=== PATIENT | male | born 1975 | race Caucasian/White ===

== ENCOUNTER 2022-09-23 16:17 | Emergency (ER) | payer OTHER, SELFPAY ==
[2022-09-23 16:44] VITALS: BP 166/120; PULSE 87; RESP 20; TEMP 36.9; O2SAT 98; BMI 25.2
--- NOTE | 2022-09-23 16:57 | CRLHL7_ITS ---
For Patients: As a result of the Century Cures Act, medical imaging exams and procedure reports are released immediately into your electronic medical record. You may view this report before your referring provider. If you have questions, please contact your health care provider. Indication: Pain after fall Technique: Three views left shoulder Comparison: None Findings: Bones: Alignment is normal. No fractures or bone lesions. Joint spaces: Unremarkable. Soft tissues: Unremarkable. Impression: Negative. Dictated by Ashley Bedoya MD @ 09/23/2022 5:41:27 PM (Electronically Signed)
--- NOTE | 2022-09-23 17:20 | ED.GENADULT ---
HPI - General Adult General Chief complaint: Shoulder Injury/Pain Stated complaint: Fell on left shoulder Time Seen by Provider: 09/23/22 16:52 Source: patient Mode of arrival: ambulatory History of Present Illness HPI narrative: 46-year-old male with a history of borderline hypertension presents emergency department 6 hours after a fall at home. He was on his way to his mailbox when he slipped on the [employer] driveway, falling behind his car. Did not hit his head, no loss of consciousness. Fell directly onto his left shoulder. He was able to get up without any assistance had some mild tenderness. He laid down for a nap and when he woke up he noticed that the pain was worsened now it is very difficult to move the arm because of pain. He can lift the arm with the opposite arm but cannot lift it on his own free will. He tried taking some Tylenol a few hours ago which did help temporarily. Has not taken any ibuprofen. No prior history of shoulder surgery. No radiculopathy. He is now getting what he describes as some trapezius area tenderness but mild. No prior history of shoulder dislocations. He thinks he may have had a clavicle fracture as a child but no complications. Past medical history states is benign, his blood pressures normally little borderline high but he is never qualified for medication. No prescriptions at this time, no allergies. Socially with no pertinent travel or intoxication. ROS is negative for other generalized, musculoskeletal, neurological, hematological or chest concerns. Related Data Previous Rx's Medication Instructions Recorded oxycodone 5 mg tablet 2.5 - 5 mg PO TID PRN pain #10 tabs 09/23/22 Allergies Allergy/AdvReac Type Severity Reaction Status Date / Time No Known Drug Allergies Allergy Verified 09/23/22 16:47 Exam Const: Vital Signs, click to edit/add: Vital Signs - 24 hr 09/23/22 16:44 Temperature 98.4 F Pulse Rate [Pulse Oximeter] 87 Respiratory Rate 20 Blood Pressure [Ri ght Upper Arm] 166/120 H Pulse Oximetry 98 Oxygen Delivery Me thod Room Air Documenting provider has reviewed patient's vital signs: yes Common normals: no apparent distress General appearance: cooperative and well kempt HENMT: Common normals: normocephalic and head/scalp atraumatic Head and scalp: normocephalic and atraumatic Face and sinus: normal facial exam Eye: Other: Pupils equal with normal visual tracking Neck & C-Spine: Common normals: full ROM Cervical spine: cervical ROM normal; no cervical spine tenderness Other: Mild tenderness of the left paraspinal muscles and trapezius area, as he described Resp: Common normals: normal respiratory effort, no use of accessory muscles and clear to auscultation bilaterally Auscultation: clear to auscultation bilaterally Cardio: Common normals: regular rate, regular rhythm, S1 normal heart sound, S2 normal heart sound, no murmurs and peripheral pulses 2+ throughout Rate: regular rate Rhythm: regular rhythm Heart sounds: S1 normal and S2 normal Peripheral pulses: pulses 2+ throughout Extremity: Other: Right shoulder with normal range of motion, no point bony tenderness normal strength. Left shoulder is shoulder in question. He has markedly reduced range of motion there is already an effusion setting in. Point of maximal tenderness is along the deltoid. There is no obvious deformity but an effusion does certainly obscure this. I can passively abduct adduct internally and externally rotate the shoulder but it is painful for him. Downstream, he has normal range of motion and strength in the wrist elbow and fingers. Normal sensation in the fingers normal hack driver strength. Neuro: Speech: speech normal Motor exam: strength 5/5 throughout, no tremor noted and no movement abnormalities noted Psych: Appearance: well kempt Mood and affect: euthymic mood Insight: insight good Judgement: judgment good Skin: Common normals: no rashes or lesions noted and no wounds General skin exam: no rashes or lesions noted Course Vital Signs Vital signs: Initial Vital Signs Temperature 98.4 F 09/23/22 16:44 Temperature Source Temporal Artery Scan 09/23/22 16:44 Pulse Rate 87 09/23/22 16:44 Respiratory Rate 20 09/23/22 16:44 Blood Pressure 166/120 H 09/23/22 16:44 Blood Pressure Mean 135 09/23/22 16:44 Blood Pressure Position Sitting 09/23/22 16:44 Pulse Oximetry 98 09/23/22 16:44 Oxygen Delivery Method 09/23/22 16:44 Vital Signs Temperature 98.4 F 09/23/22 16:44 Pulse Rate 87 09/23/22 16:44 Respiratory Rate 20 09/23/22 16:44 Blood Pressure 166/120 H 09/23/22 16:44 Pulse Oximetry 98 09/23/22 16:44 Oxygen Delivery Method 09/23/22 16:44 Temperature 98.4 F 09/23/22 16:44 Pulse Rate 87 09/23/22 16:44 Respiratory Rate 20 09/23/22 16:44 Blood Pressure 166/120 H 12 16:44 Pulse Oximetry 98 09/23/22 16:44 Oxygen Delivery Method 09/23/22 16:44 Medical Decision Making MDM Narrative Medical decision making narrative: Differential diagnosis including cervical spine injury, shoulder fracture, dislocation, sprain, rotator cuff injury. Strongly suspicious of a tear based on the fact that he already has an effusion and difficulty moving. X-rays performed, he declines Tylenol or ibuprofen at this time. X-ray reviewed: Per my interpretation, no signs of fracture. I do appreciate somewhat of an effusion as well, concern with labral tear versus rotator cuff tear. Because of this, I have advised patient to my findings and I have asked that he follow up with Orthopedics, referral has been placed. Radiology interpretation reviewed as negative as well. He still declined pain medication, we discussed Tylenol, ibuprofen, use of melatonin Tylenol p.m. at night if the pain is more severe, limited supply of oxycodone will be given for severe pain if needed alarm symptoms reviewed. Discharge Plan Discharge Clinical Impression: Injury of left rotator cuff Patient Disposition: Home, Self-Care Condition: Stable Instructions: Rotator Cuff Injury (ED) Additional Instructions: I am concerned about a tear of the tendons that operate your shoulder. The x-ray does not show fracture. These types of tears are not well seen on x-ray and may require an MRI or a more specialized exam. I would like for you to wear a sling and follow-up with an mechanical service specialist. It is okay to take her arm out of the sling to perform some gentle [id number] exercises, as this will help prevent stiffness. For pain, Tylenol 1000 mg every 6 hours and or ibuprofen 600 mg every 6 hours. I will also give you a limited supply of oxycodone to use for severe pain, mainly at night. This should be used sparingly. They will call you on Monday to schedule with the orthopedic provider. It is okay to use melatonin, Tylenol p.m. or other gentle sleep aids to help with nighttime pain and sleep. Activity Level: Activity as Tolerated Discharge Diet: Regular Prescriptions: New oxycodone 5 mg tablet 2.5 - 5 mg PO TID PRN (Reason: pain) Qty: 10 0RF Follow Up/Referrals: Jori Townsend MD [Staff Physician] - 2 Days (1st available Orthopedics, suspect internal shoulder derangement) Wesley Pennington MD [Primary Care Provider] - Stand Alone Forms: [employer] Info Instructions
[2022-09-23 18:05] VITALS: BP 166/120; PULSE 87; RESP 20; TEMP 36.9
== END 2022-09-23 17:53 | disposition home or self-care (01) ==
PROVIDERS: Emergency Provider Family Medicine; PCP Family Medicine
DX: S46.002A Unspecified injury of muscle(s) and tendon(s) of the rotator cuff of left shoulder, initial encounter (principal); W00.9XXA Unspecified fall due to ice and snow, initial encounter
CPT/HCPCS: 73030; 99283; 99284

== ENCOUNTER 2022-10-12 07:05 | Outpatient (CLI) | payer OTHER, SELFPAY ==
--- NOTE | 2022-10-12 07:15 | MR_ITS ---
[address] [address] Phone:?[phone] Fax:?[phone] Referring Physician Information: Cat Banda [address] [facility] [address] Phone:?[phone] Fax:?[phone] Patient:Jeovany Contreras D.O.B:?1975 Sex:?Male Phone:?[phone] [facility] MRN:?[id number] Exam Date:?10/12/2022 ? EXAM: MRI of the LEFT SHOULDER, without contrast CLINICAL INFORMATION: Male, 46 years old, with left shoulder pain. INDICATION: Evaluate for rotator cuff tear. PRIOR SURGERY: None reported. PLAIN FILMS: None available. COMPARISONS: No prior MRIs available. TECHNICAL INFORMATION: Using a 1.5T MR scanner and a localizing surface coil: coronal obliques: PD, T2, STIR sagittal obliques: PD, T2 axials: PD, T2 SEDATION: None CONTRAST: None FINDINGS: Bones: Proximal humerus: No fracture or marrow edema/pathology. No humeral Hill-Sachs or reverse Hill-Sachs lesion/impaction or contusion. Glenoid: No fracture or marrow edema/pathology. No osseous Bankart lesion. Rotator cuff and muscles/tendons: Supraspinatus: Full thickness, essentially full-width tear of supraspinatus, tendon retraction to the mid humeral head. A slender portion of the posterior tendon fibers may remain partially intact. No muscle atrophy. Infraspinatus: No tendinopathy, tear or atrophy. Teres minor: No tendinopathy, tear or atrophy. Subscapularis: Mild tendinopathy of the superior distal subscapularis, without tendon tear or muscle atrophy. Deltoid: No strain or atrophy. Coracoacromial arch: Acromion morphology: The acromion has type II morphology. No discrete subacromial osseous spur or os acromiale. Acromiohumeral space: The acromiohumeral space is within normal limits. Coracohumeral space: The coracohumeral space is within normal limits. Acromioclavicular joint: Joint: Mild-moderate AC joint arthropathy with approximately 3 mm of inferior osteophytosis, which encroaches upon the underlying supraspinatus (sagittal PD series 7 image 17 and coronal T2 series 6 image 11). Ligaments: Coracoclavicular ligaments are intact. Bursae: Subacromial-subdeltoid: A large amount of subacromial-subdeltoid fluid is present, with synovitis. This likely reflects accumulation from the full- thickness rotator cuff tear. Subcoracoid: No convincing subcoracoid bursal thickening/bursitis. Biceps tendon: The long head of the biceps tendon is present within the bicipital groove. Mild tendinopathy of the intra-articular biceps long head tendon, without split/tear. Glenohumeral joint: Effusion/cyst: Moderate-large glenohumeral joint effusion. Articular cartilage: Humeral head & glenoid: Minimal signal heterogeneity, surface irregularity, and thinning of the articular cartilage without full-thickness chondral loss or reactive osseous changes. Loose bodies: No discrete intra-articular body within the joint. Labrum:?Intrasubstance degeneration and fraying of the superior labrum, which is of doubtful clinical significance. No paralabral cyst. Inferior glenohumeral ligament/axillary pouch:?Intact. The axillary pouch is normal in thickness and signal. No evidence of adhesive capsulitis or capsular injury. IMPRESSION: 1. Full thickness, essentially full-width tear of supraspinatus, tendon retraction to the mid humeral head. No muscle atrophy. 2. Marked subacromial-subdeltoid bursal fluid, with synovitis. Additionally, inferior osteophytosis from mild-moderate AC joint arthropathy encroaches upon the underlying supraspinatus. However, the acromiohumeral space is normal. 3. Mild tendinopathy of the intra-articular biceps long head tendon, without split/tear. 4. Mild subscapularis tendinopathy, without tear. 5. Intrasubstance degeneration and fraying of the superior labrum, which is of doubtful clinical significance. 6. No full-thickness chondral defect or evidence of glenohumeral joint osteoarthritis. However, there is a moderate-large joint effusion. BC Electronically signed on 10/12/2022 12:09:00 PM by Zak Kelley M.D.
== END 2022-10-12 07:06 | disposition home or self-care (01) ==
LOC: MRI 07:06
PROVIDERS: PCP Family Medicine; Visit Provider Physician Assistant Surgical
DX: M25.512 Pain in left shoulder (principal); S46.002A Unspecified injury of muscle(s) and tendon(s) of the rotator cuff of left shoulder, initial encounter; M75.102 Unspecified rotator cuff tear or rupture of left shoulder, not specified as traumatic; M25.412 Effusion, left shoulder; M19.012 Primary osteoarthritis, left shoulder
CPT/HCPCS: 73221

== ENCOUNTER 2023-06-12 22:25 | Emergency (ER) | payer OTHER, SELFPAY ==
--- NOTE | 2023-06-12 22:27 | ED_ITS ---
HPI - General Adult General Time Seen by Provider: 22:27 Date Seen: 06/12/23 Chief complaint: Back Injury/Pain Stated complaint: Lower right pain back Time Seen by Provider: 06/12/23 22:26 Source: patient, RN notes reviewed and old records reviewed Mode of arrival: ambulatory Limitations: no limitations History of Present Illness HPI narrative: 47-year-old male who presents today with right low back pain. 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 Patient took Tylenol with minimal improvement. No bowel or bladder incontinence, no midline pain, no pain or numbness in the leg, no weakness the pain does go down the back of the upper leg. Related Data Home Medications Medication Instructions Recorded Confirmed lisinopril 20 1 tab PO DAILY 10/17/22 06/12/23 mg-hydrochlorothiazide 25 mg tablet Allergies Allergy/AdvReac Type Severity Reaction Status Date / Time No Known Drug Allergies Allergy Verified 06/12/23 22:33 Review of Systems Status of ROS: Reports: 10 or more systems reviewed and unremarkable except as noted in History and below PFSH FOR[facility] Medical History (Updated 06/12/23 @ 22:49 by Kemal Marina MD) Hypertension ?I10 - Essential (primary) hypertension (ICD-10) Right ankle sprain ?S93.401A - Sprain of unspecified ligament of right ankle, initial encounter (ICD-10) Hematoma ?T14.8XXA - Other injury of unspecified body region, initial encounter (ICD- 10) Lumbar radiculopathy ?M54.16 - Radiculopathy, lumbar region (ICD-10) Corneal abrasion ?S05.00XA - Injury of conjunctiva and corneal abrasion without foreign body, unspecified eye, initial encounter (ICD-10) Injury of left hand ?S69.92XA - Unspecified injury of left wrist, hand and finger(s), initial encounter (ICD-10) Surgical History H/O wrist surgery ?Z98.890 - Other specified postprocedural states (ICD-10) H/O hernia repair ?Z98.890 - Other specified postprocedural states (ICD-10) ?Z87.19 - Personal history of other diseases of the digestive system (ICD-10) Social History Smoking Status: Former smoker Second hand tobacco smoke exposure: No How often do you have a drink containing alcohol: never How often do you have six or more drinks on one occasion: Never AUDIT-C Alcohol total score: 0 Non-prescribed substance use: denies use Exam Narrative: Exam Narrative: General: well nourished , NAD Head: Atraumatic and normocephalic ENT: External ears and external nose are normal Eyes: Conjunctiva clear, pupils are equal reactive, external ocular motions are intact Neck: Full spontaneous range of motion of the neck Lungs: No respiratory distress Musculoskeletal: Right buttock tenderness, straight leg raise negative, sensation intact Neurologic: No gross focal neurologic deficits Skin: No rashes Psych: Mood and affect are appropriate Const: Vital Signs, click to edit/add: Vital Signs - 24 hr 06/12/23 22:30 Temperature 98.5 F Pulse Rate [Right Pulse Oximeter] 84 Respiratory Rate 18 Blood Pressure [Ri ght Upper Arm] 143/104 H Pulse Oximetry 99 Oxygen Delivery Me thod Room Air Course Course Hospital Course: Patient seen examined, prior records reviewed. Patient was previously seen in 2019 with lumbar radiculopathy. Presents today with right buttock pain, numbness, weakness of the leg. No bowel or bladder incontinence to suggest cauda equina syndrome. Patient will be given Toradol and Decadron in the em ergency department, plan for discharge with oxycodone 5 mg every 6 hours and prednisone taper. Follow-up with primary care for consideration for physical therapy and further evaluation. Vital Signs Vital signs: Initial Vital Signs Temperature 98.5 F 06/12/23 22:30 Temperature Source Temporal Artery Scan 06/12/23 22:30 Pulse Rate 84 06/12/23 22:30 Respiratory Rate 18 06/12/23 22:30 Blood Pressure 143/104 H 06/12/23 22:30 Blood Pressure Mean 117 H 06/12/23 22:30 Blood Pressure Position Sitting 06/12/23 22:30 Pulse Oximetry 99 06/12/23 22:30 Oxygen Delivery Method Room Air 06/12/23 22:30 Vital Signs Temperature 98.5 F 06/12/23 22:30 Pulse Rate 84 06/12/23 22:30 Respiratory Rate 18 06/12/23 22:30 Blood Pressure 143/104 H 06/12/23 22:30 Pulse Oximetry 99 06/12/23 22:30 Oxygen Delivery Method Room Air 06/12/23 22:30 Temperature 98.5 F 06/12/23 22:30 Pulse Rate 84 06/12/23 22:30 Respiratory Rate 18 06/12/23 22:30 Blood Pressure 143/104 H 06/12/23 22:30 Pulse Oximetry 99 06/12/23 22:30 Oxygen Delivery Method Room Air 06/12/23 22:30 Medical Decision Making Medical Records Medical records reviewed: Yes I reviewed the patient's medical records Lab Data Lab results reviewed: Yes I reviewed the patient's lab results Discharge Plan Discharge Clinical Impression: Sciatica Patient Disposition: Home, Self-Care Condition: Stable Instructions: Back Pain (ED), Lower Back Exercises (ED) Additional Instructions: Take Tylenol and ibuprofen as needed for pain, oxycodone for more severe pain. Take prednisone taper as prescribed Follow-up with your primary care provider to discuss physical therapy if needed Activity Level: Activity as Tolerated Prescriptions: No Action lisinopril-hydrochlorothiazide 20-25 mg tablet 1 tab PO DAILY Follow Up/Referrals: Wesley Pennington MD [Primary Care Provider] - Stand Alone Forms: [employer] Info Instructions
[2023-06-12 22:30] VITALS: BP 143/104; PULSE 84; RESP 18; TEMP 36.9; O2SAT 99; BMI 26.0
[2023-06-12 22:49] VITALS: TEMP 36.9
[2023-06-12] MEDS: dexAMETHasone 10 MG/ML inj IM (22:49)
[2023-06-12] MEDS: KETOROLAC 30 MG/ML inj IM (22:49)
[2023-06-12 22:58] VITALS: BP 135/89; PULSE 79; RESP 18; TEMP 36.9; O2SAT 99
[2023-06-12 22:59] VITALS: BP 135/89; PULSE 79; RESP 18; TEMP 36.9
== END 2023-06-12 22:59 | disposition home or self-care (01) ==
LOC: ED 22:52
PROVIDERS: Emergency Provider Family Medicine; PCP Family Medicine
DX: M54.31 Sciatica, right side (principal)
CPT/HCPCS: 96372; 99283; 99284; J1100; J1885

== ENCOUNTER 2024-01-23 15:03 | Outpatient (CLI) | payer OTHER, SELFPAY | END 2024-01-23 15:04 | disposition home or self-care (01) | LOC: NFLDUCREF 15:04 | PROVIDERS: PCP Family Medicine; Visit Provider Registered Nurse | DX: R21 Rash and other nonspecific skin eruption (principal) | CPT/HCPCS: 86618 ==

== ENCOUNTER 2025-05-25 21:21 | Emergency (ER) | payer OTHER, SELFPAY ==
--- OUTSIDE RECORDS SUMMARY | 2025-05-25 21:24 | XMS_ITS | Encounter Summary ---
Author Organization [facility] Address [address] [place] [address] Care Team Providers Care Hot Tar Roofer Helper Name Role Phone Unassigned, Provider Primary Care Provider Unava ilable Encounter Details Date Type Department Care Team (Late st Contact Info) Description 12/26/2024 Notes/Orders [facility] Orthopedic [facility] [address] [place] [id number] Ryan Hillman MD [address] [place] [id number] Social History Tobacco Use Types Packs/Day Years Used Date Smoking Tobacco: Former Cigarettes Smokeless Tobacco: Never Alcohol Use Standard Drinks/Week Comments Yes 0 (1 standard drink = 0.6 oz pur e alcohol) PHQ-2 Answer Date Recorded PHQ-2 Score 0 10/27/2022 Sex and Gender Information Value Date Recorded Sex Assigned at Not on file Legal Sex Male 4:24 AM CDT Gender Identity Not on file Sexual Orientation Not on file documented as of this encounter Plan of Treatment Not on file documented as of this encounter Visit Diagnoses Not on filedocumented in this encounter Care Teams Hot Tar Roofer Helper Relationship Specialty Start Date End Date Unassigned, Provider [address] [place] [address] PCP - General 09/15/00 documented as of this encounter
--- OUTSIDE RECORDS SUMMARY | 2025-05-25 21:24 | XMS_ITS | Clinical Summary ---
Author Organization [facility] Address [address] [place] [address] Care Team Providers Care Shell Molder Name Role Phone Unassigned, Provider Primary Care Provider Unava ilable Source Comments You are receiving this document as you are listed as the primary care provider,follow-up provider, or the patient has been referred to you for consultation.This is in compliance with the Medicare and[facility] EHR Incentive Program,which states Providers who transition their patient to another setting of careor provider of care or refers their patient to another provider of care shouldprovide summary care record for each transition of care or referral. [employer] Allergies No known active allergies Medications lisinopril-hydro CHLOROthiazide (PRINZIDE) 20-25 MG tablet Take 1 Tablet by mouth daily. 10/05/2022 Active Active Problems Problem Noted Date Diagnosed Date Tear of left rotator cuff 10/26/2022 Overview (10/26/2022): Added automatically from request for surgery [id number] Hyperlipidemia 10/26/2022 Benign essential HTN 10/05/2022 Immunizations Immunization Administration Dates Next Due MMR 02/11/1992 Td 02/11/1992 Tdap 04/05/2015 Family History Relation Name Status Comments Father Alive Mother Alive Social History Tobacco Use Types Packs/Day Years Used Date Smoking Tobacco: Former Cigarettes Smokeless Tobacco: Never Tobacco Cessation:Counseling Given: Not Answered Alcohol Use Standard Drinks/Week Comments Yes 0 (1 standard drink = 0.6 oz pur e alcohol) PHQ-2 Answer Date Recorded PHQ-2 Score 0 10/27/2022 Sex and Gender Information Value Date Recorded Sex Assigned at Not on file Legal Sex Male 4:24 AM CDT Gender Identity Not on file Sexual Orientation Not on file Last Filed Vital Signs Vital Sign Reading Time Taken Comments Blood Pressure 124/83 10/31/2022 5:37 PM [employer] Pulse 70 10/31/2022 5:37 PM [employer] Temperature 36.7 C (98.1 F) 10/31/2022 5:37 PM [employer] Respiratory Rate 16 10/31/2022 5:37 PM [employer] Oxygen Saturation 95% 10/31/2022 5:37 PM [employer] Inhaled Oxygen Concentration - - Weight 93 kg (205 lb) 10/31/2022 1:00 PM [employer] Height 190.5 cm (6' 3) 10/31/2022 1:00 PM [employer] Body Mass Index 25.62 10/31/2022 1:00 PM [employer] Plan of Treatment Health Maintenance Due Date Last Done Comments Hep C Screening (Preventive Services) 1975 PSA Screening Discussion 1975 HIV Screening (Preventive Services) 1990 HepB Vaccine (1) 1993 Cholesterol 2009 FIT Colon Cancer Screening 2018 Adult Preventive Visit 09/28/2023 2 (Completed) COVID-19 Vaccine (1 - 2023-2 5 season) 2024 Pneumococcal Vaccine 50+ Yrs (1 of 1 - PCV) 2024 Zoster/Shingles Vaccine (1 o f 2) 2024 DTaP/Tdap/Td Vaccine (3 - Tdap) 04/05/2025 04/05/2015, 02/11/1992 Influenza Vaccine (#1) 2025 HepA Vaccine Aged Out No longer eligi ble based on patient's age to complete this topic Hib Vaccine Aged Out No longer eligi ble based on patient's age to complete this topic IPV (Polio) Vaccine Aged Out No longe r eligible based on patient's age to complete this topic MCV4 Vaccine Aged Out No longer eligi ble based on patient's age to complete this topic Meningococcal B Vaccine Aged Out No l onger eligible based on patient's age to complete this topic Medical Devices Implanted Type Area Clock Assembler Device Identifier Shelf Expiration Date Model / Serial / Lot [employer] Claire 4.75x22 - [id number] Implanted:Qty: 1 on 10/31/2022 by Ryan Hillman MD at [facility] Left: SHOULDER [employer] 08/08/2026 [id number] -2 / 0 / [id number] [employer]bass Swivel Lk C 4.75x22 - [id number] Implanted:Qty: 1 on 10/31/2022 by Ryan Hillman MD at [facility] [employer] Left: SHOULDER [employer] 07/08/2026 [id number]-[id number] -2 / 0 / [id number] Scr [employer] Swivelock - [id number] Implanted:Qty: 1 on 10/31/2022 by Ryna Hillman MD at [facility] [employer] Left: SHOULDER [employer] 08/08/2026 [id number] / 0 / [id number] Insurance FULLY INSURED FULLY INSURED Advance Directives * Full Code (Latest Code Status on File) Date Activated Date Inactivated Comments 10/31/2022 5:13 PM 10/31/2022 7:54 PM Care Teams Shell Molder Relationship Specialty Start Date End Date Unassigned, Provider [address] [place] [address] PCP - General 09/15/00
--- OUTSIDE RECORDS SUMMARY | 2025-05-25 21:24 | XMS_ITS | Clinical Summary ---
Author Organization [facility] Address [address] [place] [id number] Care Team Providers Care Accounts Executive Name Role Phone Wesley Pennington MD Primary Care Provider Allergies No known active allergies Medications acetaminophen (TYLENOL) 325 mg tablet Take 1 Tablet (325 mg) by mouth every 6 hours. Max acetaminophen dose: 4000mg in 24 hrs. 0 2 Active triamcinolone 0.1% TOPICAL (KENALOG) 0.1 % lotionIndicatio ns:Acute eczema Apply topically to affected area(s) two times daily. 60 mL 2 4 Active sildenafil citrate (VIAGRA) 50 mg tabletIndicatio ns:Erectile dysfunction, unspecified erectile dysfunction type Take 1 Tablet (50 mg) by mouth once daily if needed for Erectile Dysfunction. Take 30 minutes to 4 hours before sexual activity. Max 100mg/24hr. 30 Tablet 5 4 Active olmesartan (BENICAR) 40 mg tabletIndicatio ns:Benign essential HTN Take 1 Tablet (40 mg) by mouth once daily. 90 Tablet 3 5 Active Active Problems Problem Noted Date Diagnosed Date Erectile dysfunction 09/20/2024 Hyperlipidemia 10/26/2022 Benign essential HTN 10/05/2022 Resolved Problems Problem Noted Date Diagnosed Date Resolved Date Low HDL (under 40) 12/22/2015 3 HTN (hypertension) 11/25/2015 2 Trigger finger (acquired) 05/07/2009 Encounters Date Type Department Care Team Description 03/13/2025 4:35 PM CDT Office Visit [facility] [address] [place] [address] Wesley Pennington MD Follow Up (Blood pressure) 03/13/2025 Travel from Last 3 Months Immunizations Immunization Administration Dates Next Due MMR 02/11/1992 Td (Age >=7 Years) 02/11/1992 Tdap 04/05/2015 Tdap, Unspecified 04/05/2015 Family History Medical History Relation Name Comments Hypertension Father med at age 29 Diabetes Maternal Grandmother Hypertension Maternal Uncle Heart Disease Neg. 1 Cancer-colon Neg. 2 Cancer-prostate Neg. 3 Hypertension Paternal Aunt Stroke Paternal Uncle fatal cva at 58. Relation Name Status Comments Father Maternal Grandmother Maternal Uncle Neg. 1 Neg. 2 Neg. 3 Paternal Aunt Paternal Uncle Social History Tobacco Use Types Packs/Day Years Used Date Smoking Tobacco: Former Cigarettes Q uit: 07/14/2013 Smokeless Tobacco: Never Tobacco Cessation:Counseling Given: No Alcohol Use Standard Drinks/Week Comments Yes 0 (1 standard drink = 0.6 oz pur e alcohol) socially PHQ-2 Answer Date Recorded PHQ-2 TOTAL SCORE 0 10/26/2023 Social Connections Answer Date Recorded Do you often feel lonely or isolated from those around you? 0 03/13/2025 Financial Resource Strain Answer Date R ecorded Difficulty of Paying Living Expenses 3 03/13/2025 Difficulty of Paying Living Expenses Not on file 03/13/2025 Food Insecurity Answer Date Recorded Do you worry your food will run out before you are able to buy more? 1 03/13/2025 Transportation Needs Answer Date Record ed Does lack of transportation keep you from medica l appointments? 1 03/13/2025 Does lack of transportation keep you from work, meetings or getting things that you need? 1 03/13/2025 Housing Stability Answer Date Recorded What is your housing situation today? 1 03/13/2025 Utilities Answer Date Recorded Do you have trouble paying f or utilities (for example, heat, electricity, water, phone)? 1 03/13/2025 Sex and Gender Information Value Date Recorded Sex Assigned at Not on file Legal Sex Male 6:43 AM [employer] Gender Identity Not on file Sexual Orientation Not on file Occupation Industry Job Start Date Job End Date construction Not on file Not on file Not on file Obstetrics History Last Filed Vital Signs Vital Sign Reading Time Taken Comments Blood Pressure 132/78 03/13/2025 4:37 PM CDT Pulse 70 03/13/2025 4:27 PM CDT Temperature 36.4 C (97.5 F) 07/31/2019 9:25 AM CDT Respiratory Rate - - Oxygen Saturation 96% 03/13/2025 4: 27 PM CDT Inhaled Oxygen Concentration - - Weight 100.1 kg (220 lb 9.6 oz) 03/13/2025 4:27 PM CDT Height 189 cm (6' 2.41) 10/01/2024 11: 09 AM [employer] Body Mass Index 28.01 10/01/2024 11:09 AM [employer] Plan of Treatment Health Maintenance Due Date Last Done Comments Hepatitis B series for 19+ ( 1 of 3 - 19+ 3-dose series) 1993 Colonoscopy through age 75 12/19/2019 COVID-19 vaccine series ( - season) 2024 Depression screening for age 12+ 10/26/2024 10/26/2023, 08/02/2019, 08/01/2019, Additional history exists Pneumococcal series for age 50+ (1 of 1 - PCV) 2024 Zoster (shingles) series for age 50+ (1 of 2) 2024 Tetanus booster 04/05/2025 04/05/2015, 03/10, 02/11/1992 Influenza Vaccine (#1) 2025 BMI (ht and wt on same day) for age 18+ 10/01/2025 10/01/2024, 09/20/2024, 01/11/2024, Additional history exists Lipids for age 45-75 03/13/2030 03/13/2025, 09/20/2024, 10/26/2023, Additional history exists HIV for age 15-65 Completed 10/05/2022 Hepatitis C screening for ag e 18-79 Completed 10/05/2022 Procedures Procedure Name Priority Date/Time Associated Diagnosis Comments LIPID PANEL W REFLEX MEASURED LDL Routine 03/13/2025 4:45 PM CDT Hyperlipidemia, unspecified hyperlipidemia type BASIC METABOLIC PANEL Routine 03/13/2025 4:45 PM CDT Benign essential HTN LC HIV-1/O/2, 4TH GENERATION Routine 10/05/2022 4:18 PM [employer] Benign essential HTN Lipid screening Screening for HIV (human immunodeficiency virus) LC HCV ANTIBODY RFX TO QUANT PCR Routine 10/05/2022 4:18 PM [employer] Need for hepatitis C screening test from Last 3 Months or Most Recently Relevant to Health Maintenance Results * (ABNORMAL) LIPID PANEL W REFLEX MEASURED LDL (03/13/2025 4:45 PM CDT) CHOLESTEROL, TOTAL 200(H) <200 mg/dL [facility] HDL CHOLESTEROL 28(L) > OR = 40 mg/dL [facility] TRIGLYCERIDES 359(H) <150 mg/dL [facility] Comment: If a non-fasting specimen was collected, consider repeat triglyceride testing on a fasting specimen if clinically indicated. Bob et al. J. of Clin. Lipidol. 2015;9:129-169. LDL-CHOLESTEROL 121(H) mg/dL (calc) [facility] Comment: Reference range: <100 Desirable range <100 mg/dL for primary prevention; <70 mg/dL for patients with CHD or diabetic patients with > or = 2 CHD risk factors. LDL-C is now calculated using the Emil-Crane calculation, which is a validated novel method providing better accuracy than the Friedewald equation in the estimation of LDL-C. Emil CHÁVEZ et al. RONAN. 2013;310(19): 1901-0317 (http://education.[employer].Business Lab/faq/URE714) CHOL/HDLC RATIO 7.1(H) <5.0 (calc) [facility] NON HDL CHOLESTEROL 172(H) <130 mg/dL (calc) [facility] Comment: For patients with diabetes plus 1 major ASCVD risk factor, treating to a non-HDL-C goal of <100 mg/dL (LDL-C of <70 mg/dL) is considered a therapeutic option. Blood BLOOD SPECIMEN / Unknown 03/13/2025 4:45 PM CDT 03/13/2025 4:45 PM CDT us Wesley Pennington MD CHEMISTRY Final Result [facility] [address] [place] [address], [place] [phone] [facility] [address] [facility] [place] [address] * BASIC METABOLIC PANEL (03/13/2025 4:45 PM CDT) [facility] GLUCOSE 92 65 - 99 mg/dL [facility] Comment: Fasting reference interval UREA NITROGEN (BUN) 16 7 - 25 mg/dL [facility] CREATININE 1.04 0.70 - 1.30 mg/dL [facility] EGFR 87 > OR = 60 mL/min/1. 73m2 [facility] BUN/CREATININE RATIO SEE NOTE: 6 - 22 (calc) [facility] Comment: Not Reported: BUN and Creatinine are within reference range. SODIUM 141 135 - 146 mmol/L [facility] POTASSIUM 3.7 3.5 - 5.3 mmol/L [facility] CHLORIDE 106 98 - 110 mmol/L [facility] CARBON DIOXIDE 27 20 - 32 mmol/L [facility] ELECTROLYTE BALANCE 8 7 - 17 mmol/L (calc) [facility] CALCIUM 9.0 8.6 - 10.3 mg/dL [facility] Blood BLOOD SPECIMEN / Unknown 03/13/2025 4:45 PM CDT 03/13/2025 4:45 PM CDT us Wesley Pennington MD CHEMISTRY Final Result Performing Organization Address City/[facility]/ZIP Co de Phone Number [facility] [address] [place] [address], [place] [phone] [facility] [address] [place] [address] * HCV ANTIBODY RFX TO QUANT PCR (10/05/2022 4:18 PM [employer]ING [employer]) [facility] HCV Ab <0.1 0.0 - 0.9 s/co ratio 10/08/2022 10:08 AM [employer] [facility] ([facility]) Blood BLOOD SPECIMEN / Unknown Venipuncture / Unknown 10/05/2022 4:18 PM [employer] 10/05/2022 4:18 PM [employer] Narrative [facility] ([facility]) - 10/08/2022 10:08 AM [employer]ING [employer] Performed at: [address] [place] [id number] Mica Miner: Roc Mistry MD, Phone: [phone] Wesley Pennington MD LABORATORY Final Result Performing Organization Address [facility] Co de Phone Number [facility] ([facility]) [address] [place] [address], * HIV-1/O/2, 4TH GENERATION (10/05/2022 4:18 PM [employer]ING [employer]) [facility] HIV Scr 4th Gen Non Reactive Non Reactive 10/13/2022 2:07 AM [employer]ING [employer] [facility] ([facility]) Comment: HIV Negative HIV-1/HIV-2 antibodies and HIV-1 p24 antigen were NOT detected. There is no laboratory evidence of HIV infection. Blood BLOOD SPECIMEN / Unknown Venipuncture / Unknown 10/05/2022 4:18 PM [employer] 10/10/2022 12:07 PM [employer]ING [employer] Narrative [facility] ([facility]) - 10/13/2022 2:07 AM [employer]ING [employer] Performed at: [address] [place] [id number] Mica Miner: Roc Mistry MD, Phone: [phone] Wesley Pennington MD LABORATORY Final Result Performing Organization Address City/[facility] Co de Phone Number [facility] [address] [place] [address], from Last 3 Months or Most Recently Relevant to Health Maintenance Insurance [employer] Care Teams Accounts Executive Relationship Specialty Start Date End Date Wesley Pennington MD [address] [place] [address] PCP - General 12/25/07
--- NOTE | 2025-05-25 21:28 | CRLHL7_ITS ---
For Patients: As a result of the Cures Act, medical imaging exams and procedure reports are released immediately into your electronic medical record. You may view this report before your referring provider. If you have questions, please contact your health care provider. Indication: Trauma, pain Technique: Left hand 3 views. Comparison: 02/10/2019 Findings: Postop changes to the scaphoid. No acute fracture. Impression: No sign of acute injury. Dictated by Gerard Leija MD @ 05/25/2025 9:46:59 PM (Electronically Signed)
[2025-05-25 21:55] VITALS: BP 160/96; PULSE 70; RESP 16; TEMP 37.3; O2SAT 97; BMI 26.4
--- NOTE | 2025-05-25 23:00 | ED_ITS ---
HPI - General Adult General Chief complaint: Extremity Pain/Injury, Upper Stated complaint: left hand injury Time Seen by Provider: 05/25/25 22:51 History of Present Illness HPI narrative: Pt reports around 1800 tonight he missed a step and fell. Primary complaint is swelling/pain to left hand. Did also hit left leg and head during fall. Denies LOC, denies thinners. A&Ox4 in triage. 49-year-old man presenting to the emergency department after a fall. Primary injuries to left hand. Describes pain at the base of the thumb. History of surgery here as well. Scrape to his left lower leg. Denies neck or back pain. No loss of consciousness. Has been icing but just noted more swelling and pain in that she be evaluated since this is a postoperative site. Did lightly hit head; sounds like glancing on the wall; does not feel that that needs to be evaluated. Same for left lower leg. Related Data Home Medications ?Medication ?Instructions ?Recorded ?Confirmed lisinopril 20 1 tab PO DAILY 10/17/2210/10 4/25 mg-hydrochlorothiazide 25 mg tablet triamcinolone acetonide 0.1 % 1 applic topical BID 11/01/24 lotion Previous Rx's ?Medication ?Instructions ?Recorded cetirizine 10 mg tablet (Zyrtec) 10 mg PO QDAY PRN all ergy symptoms 11/01/24 #30 tabs Allergies Allergy/AdvReac Type Severity Reaction Status Date / Time No Known Drug Allergies Allergy Verified 11/01/24 14:24 Review of Systems Status of ROS: Reports: 6 or more systems reviewed and unremarkable except as noted in History and below [facility] Medical History Hypertension ?I10 - Essential (primary) hypertension (ICD-10) Right ankle sprain ?S93.401A - Sprain of unspecified ligament of right ankle, initial encounter (ICD-10) Hematoma ?T14.8XXA - Other injury of unspecified body region, initial encounter (ICD- 10) Lumbar radiculopathy ?M54.16 - Radiculopathy, lumbar region (ICD-10) Corneal abrasion ?S05.00XA - Injury of conjunctiva and corneal abrasion without foreign body, unspecified eye, initial encounter (ICD-10) Injury of left hand ?S69.92XA - Unspecified injury of left wrist, hand and finger(s), initial e ncounter (ICD-10) Surgical History H/O wrist surgery ?Z98.890 - Other specified postprocedural states (ICD-10) H/O hernia repair ?Z98.890 - Other specified postprocedural states (ICD-10) ?Z87.19 - Personal history of other diseases of the digestive system (ICD-10) Social History Smoking Status: Former smoker Second hand tobacco smoke exposure: No How often do you have a drink containing alcohol: monthly or less How often do you have six or more drinks on one occasion: Never AUDIT-C Alcohol total score: 1 Non-prescribed substance use: denies use Exam Narrative: Exam Narrative: Pleasant. Good energy. Breathing easily. Lungs appear to be clear. Head appears atraumatic. Neck is supple nontender. Back nontender. There is a slight scrape above/about the left ankle. Moving all extremities without difficulty other than the left hand where has pain to palpation about the hypothenar/1st metacarpal. Quite tender to palpation here. I do not appreciate deformity. Sensation intact. Const: Vital Signs, click to edit/add: Vital Signs - 24 hr 05/25/25 21:55 Temperature 99.1 F Pulse Rate [Pulse Oximeter] 70 Respiratory Rate 16 Blood Pressure [Ri ght Upper Arm] 160/96 H Pulse Oximetry 97 Oxygen Delivery Me thod Room Air Documenting provider has reviewed patient's vital signs: yes Course Vital Signs Vital signs: Initial Vital Signs Temperature 99.1 F 05/25/25 21:55 Temperature Source Temporal Artery Scan 05/25/25 21:55 Pulse Rate 70 05/25/25 21:55 Respiratory Rate 16 05/25/25 21:55 Blood Pressure 160/96 H 05/25/25 21:55 Blood Pressure Mean 117 H 05/25/25 21:55 Blood Pressure Position Sitting 05/25/25 21:55 Pulse Oximetry 97 05/25/25 21:55 Oxygen Delivery Method Room Air 05/25/25 21:55 Vital Signs Temperature 99.1 F 05/25/25 21:55 Pulse Rate 70 05/25/25 21:55 Respiratory Rate 16 05/25/25 21:55 Blood Pressure 160/96 H 05/25/25 21:55 Pulse Oximetry 97 05/25/25 21:55 Oxygen Delivery Method Room Air 05/25/25 21:55 Temperature 99.1 F 05/25/25 21:55 Pulse Rate 70 05/25/25 21:55 Respiratory Rate 16 05/25/25 21:55 Blood Pressure 160/96 H 05/25/25 21:55 Pulse Oximetry 97 05/25/25 21:55 Oxygen Delivery Method Room Air 05/25/25 21:55 Medical Decision Making MDM Narrative Medical decision making narrative: Is certainly possible fracture here. Not appear to need imaging other than the left hand. Possible thumb sprain/ligamentous injury. Three-view x-ray of the left hand independently reviewed by me shows scaphoid repair. I do not see other bony injury. Did discuss findings. Recommending thumb spica splint which was placed here in the ER. See patient discharge plan for further discussion Ice the areas that hurt a few times daily over the next few days. Wear this thumb spica for comfort, rest over the next week. Follow-up in a week to 10 days if not improved. Take ibuprofen or acetaminophen as needed. Medical Records Medical records reviewed: Yes I reviewed the patient's medical records Discharge Plan Discharge Clinical Impression: Fall, Left thumb sprain, Contusion Patient Disposition: Home, Self-Care Condition: Stable Instructions: Wrist Sprain (ED) Additional Instructions: Ice the areas that hurt a few times daily over the next few days. Wear this thumb spica for comfort, rest over the next week. Follow-up in a week to 10 days if not improved. Take ibuprofen or acetaminophen as needed. Activity Level: Activity as Tolerated Prescriptions: No Action lisinopril-hydrochlorothiazide 20-25 mg tablet 1 tab PO DAILY triamcinolone acetonide 0.1 % lotion 1 applic topical BID cetirizine [Zyrtec] 10 mg tablet 10 mg PO QDAY PRN (Reason: allergy symptoms) Qty: 30 0RF Follow Up/Referrals: Wesley Pennington MD [Primary Care Provider, Family Practice] Stand Alone Forms: [facility] Info Instructions
== END 2025-05-25 23:30 | disposition home or self-care (01) ==
PROVIDERS: Emergency Provider Family Medicine; PCP Family Medicine
DX: S63.602A Unspecified sprain of left thumb, initial encounter (principal); W01.0XXA Fall on same level from slipping, tripping and stumbling without subsequent striking against object, initial encounter
CPT/HCPCS: 29130; 73130; 99283; 99284